=== PATIENT | female | born 1935 | race Asian ===

== ENCOUNTER 2019-03-02 11:35 | Observation (INO) ==
[2019-03-02 12:45] LABS: Basophils % 0.6 %; Eosinophils # 0.1 K/mcL (0.0-0.6); Eosinophils % 1.7 %; Hematocrit 21.5 % (35.3-44.9); Hemoglobin 6.3 g/dL (11.5-15.4); Immature Granulocytes % 0.4 % (0-4); Lymphocytes # 0.4 K/mcL (0.6-4.6); Lymphocytes % 8.6 %; Mean Corpuscular HGB Conc 29.3 g/dL (31.6-35.5); Mean Corpuscular Hemoglobin 33.2 pg (28.0-33.3); Mean Corpuscular Volume 113.2 fL (83.0-100.0); Mean Platelet Volume 10.4 fL (9.4-12.4); Monocytes # 0.4 K/mcL (0.0-1.3); Monocytes % 7.7 %; Neutrophils # 3.9 K/mcL (1.6-8.9); Platelet Count 171 K/mcL (140-400); Red Cell Distribution Width 16.4 % (11.5-14.5); White Blood Count 4.8 K/mcL (4.3-11.1)
[2019-03-02 12:54] LABS: INR 1.1; Prothrombin Time 12.7 Seconds (9.4-12.1)
[2019-03-02 12:57] LABS: Activated Partial Thrombo Time 37.3 Seconds (26.0-36.0)
[2019-03-02] MEDS ORDERED: MOM Conc 10 ML UD.LIQ PO PRN (13:08)
[2019-03-02] MEDS ORDERED: Naloxone 0.4 MG/ML INJ IVP PRN (13:08)
[2019-03-02] MEDS ORDERED: Ondansetron 4 MG/2 ML VIAL IVP PRN (13:08)
[2019-03-02] MEDS ORDERED: Acetaminophen 325 MG TABLET PO PRN (13:08)
[2019-03-02] MEDS ORDERED: Fluticasone Propionate Nasal 50 MCG/SPRAY BOTTLE NS PRN (13:12)
[2019-03-02 13:17] LABS: BUN/Creatinine Ratio 28 (6-26); Blood Urea Nitrogen 23 mg/dL (8-23); Calcium 8.7 mg/dL (8.6-10.3); Carbon Dioxide 24 mEq/L (23-29); Chloride 109 mEq/L (98-107); Glucose 100 mg/dL (70-105); Osmolality,Calculated 294 (280-300); Sodium 140 mEq/L (136-145); eGFR For African Americans > 60 (> 60); eGFR For Non-African Americans > 60 (> 60)
[2019-03-02 13:28] LABS: Anisocytosis 1+ (Not Present); Macrocytosis Present (Not Present); Platelet Estimate Normal (Normal); Polychromasia 1+ (Not Present)
[2019-03-02] MEDS: 0.9 % Sodium Chloride 1,000 ML IVC SCH (13:38)
[2019-03-02] MEDS ORDERED: 0.9 % Sodium Chloride 500 ML ONE (13:45)
[2019-03-02] MEDS ORDERED: 0.9 % Sodium Chloride 250 ML ONE (17:23)
[2019-03-02] MEDS: Pantoprazole 40 MG VIAL IVP SCH (18:04)
[2019-03-03] MEDS: 0.9 % Sodium Chloride 1,000 ML IVC SCH (05:26)
[2019-03-03] MEDS: Pantoprazole 40 MG VIAL IVP SCH (05:27)
[2019-03-03 06:31] LABS: Hematocrit 33.4 % (35.3-44.9); Hemoglobin 10.4 g/dL (11.5-15.4); Mean Corpuscular HGB Conc 31.1 g/dL (31.6-35.5); Mean Corpuscular Hemoglobin 31.2 pg (28.0-33.3); Mean Corpuscular Volume 100.3 fL (83.0-100.0); Mean Platelet Volume 10.6 fL (9.4-12.4); Platelet Count 156 K/mcL (140-400); Red Blood Count 3.33 M/mcL (3.82-4.97); Red Cell Distribution Width 20.4 % (11.5-14.5); White Blood Count 5.1 K/mcL (4.3-11.1)
[2019-03-03 07:19] VITALS: BP 146/72
[2019-03-03] MEDS ORDERED: [UNRECOGNIZED DRUG - OTHER] PO SCH (09:00)
[2019-03-03] MEDS ORDERED: UBIDECARENONE 100 MG PO SCH (09:00)
[2019-03-03] MEDS ORDERED: Cholecalciferol (D-3) 1,000 UNIT (25MCG) TABLET PO SCH (09:00)
[2019-03-03] MEDS ORDERED: RED YEAST RICE 2400 MG PO SCH (09:00)
[2019-03-03] MEDS ORDERED: LUTEIN 20 MG PO SCH (09:00)
== END 2019-03-03 11:00 | disposition home or self-care (01) ==
LOC: INPPIK 11:35 → EMEROOPIK 11:35 → INPPIK 14:59
PROVIDERS: ADMIT Family Medicine; ATTEND Family Medicine